=== PATIENT | male | born 1955 | race African-American/Black ===

== ENCOUNTER 2017-07-13 16:39 | Emergency (ER) | payer OTHER, MEDICARE ==
[~2017-07-13] VITALS: Ht 172.7 cm; Wt 102.1 kg
[2017-07-13] MEDS ORDERED: IV NORMAL SALINE 1000ML BAG 1,000 ML IV SCH (17:53)
[2017-07-13] MEDS ORDERED: ONDANSETRON PF 4 MG/2 ML VIAL. IV ONE (18:00)
[2017-07-13] MEDS ORDERED: PANTOPRAZOLE IV PUSH 40 MG VIAL. IVP ONE (18:00)
[2017-07-13 18:03] LABS: BASO % 1 % (0-3); EOS % 1 % (0-3); LYMPH % 22 % (24-48); MEAN CORPUSCULAR HEMOGLOBIN 29 pg (25-35); MEAN CORPUSCULAR HGB CONC 34 g/dL (31-37); MEAN CORPUSCULAR VOLUME 86 fL (79-100); MONO % 10 % (0-9); NEUT % 66 % (31-73); PLATELET COUNT 214 x10^3/uL (140-400); RED BLOOD COUNT 4.76 x10^6/uL (4.30-5.70); WHITE BLOOD COUNT 4.6 x10^3/uL (4.0-11.0)
[2017-07-13 18:10] LABS: CALCIUM 9.7 mg/dL (8.5-10.1); CREATININE 1.1 mg/dL (0.7-1.3); GFR 82.1; POTASSIUM 3.5 mmol/L (3.5-5.1)
[2017-07-13 18:16] LABS: ALBUMIN 4.2 g/dL (3.4-5.0); ALBUMIN/GLOBULIN RATIO 1.4 (1.0-1.7); TOTAL BILIRUBIN 0.7 mg/dL (0.2-1.0); TOTAL PROTEIN 7.3 g/dL (6.4-8.2)
--- NOTE | 2017-07-13 18:31 | PHYS DOC ---
Past Medical History Past Medical History: Hypertension, Other Additional Past Medical Histor: CHRONIC BACK AND LEG PAIN Past Surgical History: Cholecystectomy, Tonsillectomy, Other Additional Past Surgical Histo: left foot surgery with hardware Alcohol Use: None Drug Use: None Adult General Chief Complaint Chief Complaint: ABDOMINAL PAIN HPI HPI Patient is a 61 year old male who presents with complaint of abdominal pain and hematemesis. Patient states that he has been having intermittent abdominal pain throughout the week, however he started getting nausea and vomiting today. Patient states that he throughout a moderate amount of bright red blood. Patient states that he has history of gastric ulcers which were diagnosed in August 2016 by EGD. Patient states that he has not had any associated hematemesis in the past with this. Patient denies any associated fevers. Patient states that he has noticed his stools becoming darker over the past week. Patient states his pain is in his upper abdomen and feels "deep down." Patient rates his pain as 10 out of 10. The patient states that he has history of chronic low back pain and had been taking hydrocodone for his pain this week. Patient states that he is concerned he may cause bleeding in his stomach because he states he took 1 ibuprofen tablet to help with his pain. Review of Systems Review of Systems Constitutional: Denies fever or chills [] Eyes: Denies change in visual acuity, redness, or eye pain [] HENT: Denies nasal congestion or sore throat [] Respiratory: Denies cough or shortness of breath [] Cardiovascular: Denies chest pain or edema[] GI: Abdominal pain, nausea, hematemesis[] : Denies dysuria or hematuria [] Musculoskeletal: Chronic low back pain[] Integument: Denies rash or skin lesions [] Neurologic: Denies headache, focal weakness or sensory changes [] Current Medications Current Medications Current Medications Medications (Trade) Dose Ordered Sig/Ana Maria Start Time Stop Time Status Last Admin Dose Admin Fentanyl Citrate (Fentanyl 2ml Vial) 50 mcg PRN Q15MIN PRN 07/13/17 18:30 07/14/17 18:29 07/13/17 19:51 50 MCG Ondansetron HCl (Zofran) 4 mg 1X ONCE 07/13/17 18:00 07/13/17 18:01 DC 07/13/17 18:24 4 MG Pantoprazole Sodium (Protonix Vial) 40 mg 1X ONCE 07/13/17 18:00 07/13/17 18:01 DC 07/13/17 18:27 40 MG Sodium Chloride 1,000 ml @ 1,000 mls/hr Q1H 07/13/17 17:53 07/13/17 18:52 DC 07/13/17 18:45 1,000 MLS/HR Allergies Allergies Allergies Coded Allergies Type Severity Reaction Last Updated Verified Sulfa (Sulfonamide Antibiotics) Allergy Intermediate HIVES 07/13/16 Yes Tetracyclines Allergy Intermediate HIVES 07/13/16 Yes Physical Exam Physical Exam Constitutional: Alert, afebrile, appears in mild to moderate discomfort. [] HENT: Normocephalic, atraumatic, bilateral external ears normal, oropharynx moist, no oral exudates, nose normal. [] Eyes: PERRLA, EOMI, conjunctiva normal, no discharge. [] Neck: Normal range of motion, no tenderness, supple, no stridor. [] Cardiovascular:Heart rate regular rhythm, no murmur [] Lungs & Thorax: Bilateral breath sounds clear to auscultation [] Abdomen: Bowel sounds normal, soft, mild epigastric tenderness to palpation, no guarding or rebound tenderness, no masses, no pulsatile masses. [] Skin: Warm, dry, no erythema, no rash. [] Back: No tenderness, no CVA tenderness. [] Extremities: No tenderness, no cyanosis, no clubbing, ROM intact, no edema. [] Neurologic: Alert and oriented X 3, normal motor function, normal sensory function, no focal deficits noted. [] Current Patient Data Vital Signs Vital Signs Date Time Temp Pulse Resp B/P (MAP) Pulse Ox O2 Delivery O2 Flow Rate FiO2 07/13/17 20:01 58 20 124/74 (91) 100 Room Air 07/13/17 17:27 98.1 98.1 Lab Values Laboratory Tests Test 07/13/17 17:30 07/13/17 19:15 07/13/17 19:30 White Blood Count 4.6 x10^3/uL (4.0-11.0) Red Blood Count 4.76 x10^6/uL (4.30-5.70) Hemoglobin 14.0 g/dL (13.0-17.5) Hematocrit 41.0 % (39.0-53.0) Mean Corpuscular Volume 86 fL (79-100) Mean Corpuscular Hemoglobin 29 pg (25-35) Mean Corpuscular Hemoglobin Concent 34 g/dL (31-37) Red Cell Distribution Width 14.0 % (11.5-14.5) Platelet Count 214 x10^3/uL (140-400) Neutrophils (%) (Auto) 66 % (31-73) Lymphocytes (%) (Auto) 22 % (24-48) L Monocytes (%) (Auto) 10 % (0-9) H Eosinophils (%) (Auto) 1 % (0-3) Basophils (%) (Auto) 1 % (0-3) Neutrophils # (Auto) 3.1 x10^3uL (1.8-7.7) Lymphocytes # (Auto) 1.0 x10^3/uL (1.0-4.8) Monocytes # (Auto) 0.5 x10^3/uL (0.0-1.1) Eosinophils # (Auto) 0.1 x10^3/uL (0.0-0.7) Basophils # (Auto) 0.0 x10^3/uL (0.0-0.2) Sodium Level 133 mmol/L (136-145) L Potassium Level 3.5 mmol/L (3.5-5.1) Chloride Level 89 mmol/L (98-107) L Carbon Dioxide Level 38 mmol/L (21-32) H Anion Gap 6 (6-14) Blood Urea Nitrogen 25 mg/dL (8-26) Creatinine 1.1 mg/dL (0.7-1.3) Estimated GFR (Cockcroft-Gault) 82.1 BUN/Creatinine Ratio 23 (6-20) H Glucose Level 97 mg/dL (70-99) Calcium Level 9.7 mg/dL (8.5-10.1) Total Bilirubin 0.7 mg/dL (0.2-1.0) Aspartate Amino Transferase (AST) 36 U/L (15-37) Alanine Aminotransferase (ALT) 43 U/L (16-63) Alkaline Phosphatase 46 U/L (46-116) Total Protein 7.3 g/dL (6.4-8.2) Albumin 4.2 g/dL (3.4-5.0) Albumin/Globulin Ratio 1.4 (1.0-1.7) Lipase 212 U/L (73-393) Urine Collection Type Clean catch Urine Color Yellow Urine Clarity Clear Urine pH 7.5 Urine Specific [place] 1.010 Urine Protein Negative mg/dL (NEG-TRACE) Urine Glucose (UA) Negative mg/dL (NEG) Urine Ketones (Stick) Negative mg/dL (NEG) Urine Blood Negative (NEG) Urine Nitrite Negative (NEG) Urine Bilirubin Negative (NEG) Urine Urobilinogen Dipstick 0.2 mg/dL (0.2 mg/dL) Urine Leukocyte Esterase Negative (NEG) Urine RBC 0 /HPF (0-2) Urine WBC 0 /HPF (0-4) Urine Squamous Epithelial Cells Occ /LPF Urine Bacteria 0 /HPF (0-FEW) Stool Occult Blood Negative (NEG) Laboratory Tests 07/13/17 17:30 Laboratory Tests 07/13/17 17:30 EKG EKG Not performed[] Radiology/Procedures Radiology/Procedures Not performed[] Course & Med Decision Making Course & Med Decision Making Pertinent Labs and Imaging studies reviewed. (See chart for details) Patient was given IV fluids, Zofran, Protonix, and fentanyl in the emergency department. The patient's hemoglobin is normal vital signs are stable, and patient's Hemoccult stool was negative. Patient's BUN is also normal. At this time, the patient does not display evidence of severe GI bleeding. After speaking with patient, we have agreed on initiation of Protonix therapy. Patient will also be given Zofran to help with nausea and advised to stick with a clear liquid diet free of red dyes until patient has followed up with his primary doctor in 2 days. I recommended that he go through his primary doctor for referral to gastroenterology as this was done originally when he had his EGD and patient is currently unable to identify who his GI doctor wasn't saw him. The patient was also given contact information for Dr. Fang if he is unable to secure GI follow-up through his primary doctor. Advised return to the emergency department for any worsening symptoms. Patient voiced understanding and in agreement with treatment plan. Dragon Disclaimer Dragon Disclaimer This electronic medical record was generated, in whole or in part, using a voice recognition dictation system. Departure Departure Impression: Primary Impression: Hematemesis Additional Impressions: Peptic ulcer disease Chronic back pain Disposition: HOME, SELF-CARE Condition: IMPROVED Referrals: VISHAL BRAVO Jr, MD (PCP) HERO FANG MD Patient Instructions: Hematemesis Additional Instructions: Continue on a clear liquid diet for the next 2 days. Follow-up with your primary doctor in 2 days for reevaluation. Return to the emergency department for any worsening symptoms. Scripts Ondansetron (ZOFRAN ODT) 4 Mg Tab.rapdis 1 TAB SL Q8HRS Y for NAUSEA/VOMITING, #15 TAB Prov: MARILIA HUNTER MD 07/13/17 Pantoprazole Sodium (PROTONIX) 40 Mg Tablet.dr 1 TAB PO UD, #37 TAB 0 Refills Begin taking one tablet twice a day for 7 days, then take one tablet daily after that. Prov: MARILIA HUNTER MD 07/13/17 Problem Qualifiers Primary Impression: Hematemesis Nausea presence: with nausea Qualified Codes: K92.0 - Hematemesis Additional Impressions: Chronic back pain Back pain location: low back pain Back pain laterality: right Sciatica presence: with sciatica Sciatica laterality: sciatica of right side Qualified Codes: M54.41 - Lumbago with sciatica, right side; G89.29 - Other chronic pain MARILIA HUNTER MD Jul 13, 2017 18:31
[2017-07-13] MEDS: fentaNYL PF VIAL 100 MCG/2 ML VIAL IV PRN ×3 (18:45→19:51)
[2017-07-13 19:23] LABS: BILIRUBIN,URINE NEGATIVE (NEG); GLUCOSE,URINE NEGATIVE (NEG); NITRITE,URINE NEGATIVE (NEG); PH,URINE 7.5; PROTEIN,URINE NEGATIVE (NEG-TRACE); UROBILINOGEN,URINE 0.2 mg/dL (0.2 mg/dL)
[2017-07-13 19:31] LABS: BACTERIA,URINE 0 /HPF (0-FEW); RBC,URINE 0 /HPF (0-2); SQUAMOUS EPITHELIAL CELL,UR OCC /LPF; WBC,URINE 0 /HPF (0-4)
[2017-07-13 19:46] LABS: NEG OBC FOB NEG; POS OBC FOB POS
[2017-07-13 20:01] VITALS: BP 124/74
[2017-07-13] MEDS ORDERED: ONDA4TAB10 SL (20:15)
[2017-07-13] MEDS ORDERED: PANT40TA3 PO (20:15)
== END 2017-07-13 20:30 | disposition home or self-care (01) ==
LOC: ER 16:39
DX: K27.9 Peptic ulcer, site unspecified, unspecified as acute or chronic, without hemorrhage or perforation (principal); M54.41 Lumbago with sciatica, right side; K92.0 Hematemesis; G89.29 Other chronic pain; I10 Essential (primary) hypertension; Z90.49 Acquired absence of other specified parts of digestive tract; Z88.2 Allergy status to sulfonamides; Z88.8 Allergy status to other drugs, medicaments and biological substances
CPT/HCPCS: 36415; 80053; 81001; 82274; 83690; 85025; 96361; 96374; 96375; 96376; 99284; C9113; J2405; J3010; J7030